=== PATIENT | female | born 1990 | race Caucasian/White ===

== ENCOUNTER 2017-05-31 14:34 | Emergency (ER) | payer SELFPAY ==
[~2017-05-31] VITALS: Ht 165.1 cm; Wt 54.5 kg
[~2017-05-31 14:34] MED LIST: IBUP600 PO; PERC5TAB12 PO; PERI8.6T PO; PREN1CAP PO; RANI150 PO
[2017-05-31 14:38] VITALS: BP 128/74; PULSE 90; RESP 18; TEMP 97.8; O2SAT 99
--- NOTE | 2017-05-31 16:12 | PD ---
HPI Chief Complaint: Lump, Cyst, Hernia Time Seen by Provider: 16:11 Travel History International Travel<30 days: No Contact w/Intl Traveler<30days: No Traveled to known affect area: No PFSH Past Medical History Diminished Hearing: No Immunizations Current: Yes (all utd) : 0 Social History Alcohol Use: No Tobacco Use: No Substance Use: No Allergies-Medications (Allergen,Severity, Reaction): Coded Allergies: No Known Allergies (Unverified , 02/16/15) Reported Meds & Prescriptions Reported Meds & Active Scripts Active Motrin 600 Mg Tab (Ibuprofen) 600 Mg Tab 600 Mg PO Q6H PRN Michelle-Colace 8.6-50 mg (Sennosides-Docusate Sodium) 1 Tab Tab 2 Tab PO Q12H PRN Percocet 5-325 mg (Oxycodone/Acetaminophen) Oxycodone 5/325 Acetaminophen Tab 1 Tab PO Q6H PRN Zantac 150 Mg Tab (Ranitidine HCl) 150 Mg Tab 150 Mg PO BID Vitafol Ultra 29-0.6-0.4-200 mg ( Vit W/ Fe Polysacch C) 1 Cap Cap 1 Tab PO DAILY Data Data Last Documented VS Vital Signs Date Time Temp Pulse Resp B/P (MAP) Pulse Ox O2 Delivery O2 Flow Rate FiO2 05/31/17 14:38 97.8 90 18 128/74 (92) 99 Zuri Mi May 31, 2017 16:12
== END 2017-05-31 16:43 | disposition left against medical advice (07) ==
LOC: NETRI 14:34
DX: R22.2 Localized swelling, mass and lump, trunk (principal); Z53.21 Procedure and treatment not carried out due to patient leaving prior to being seen by health care provider
CPT/HCPCS: 99281